=== PATIENT | female | born 1985 | race African-American/Black ===

== ENCOUNTER 2016-11-07 19:25 | Emergency (ER) | payer MEDICAID, OTHER ==
[~2016-11-07] VITALS: Ht 170.2 cm; Wt 129.0 kg
[~2016-11-07 19:25] MED LIST: AMLO5TAB2 PO; LABE100T2 PO; LOSA100T2 PO
[2016-11-07 19:27] VITALS: BP 176/92; PULSE 83; RESP 15; TEMP 97.6; O2SAT 97
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
[2016-11-07] MEDS ORDERED: DICL75TA PO (21:08)
[2016-11-07] MEDS ORDERED: CYCL1TAB29 PO (21:08)
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
[2016-11-07] MEDS ORDERED: ACETAMINOPHEN/HYDROcodone 325 MG/5 MG TAB PO ONE (21:15)
== END 2016-11-07 21:23 | disposition home or self-care (01) ==
LOC: NETRI 19:25
DX: S40.011A Contusion of right shoulder, initial encounter (principal); S20.211A Contusion of right front wall of thorax, initial encounter; I10 Essential (primary) hypertension; E11.9 Type 2 diabetes mellitus without complications; R20.2 Paresthesia of skin; V43.62XA Car passenger injured in collision with other type car in traffic accident, initial encounter; Y92.410 Unspecified street and highway as the place of occurrence of the external cause; Z72.0 Tobacco use
CPT/HCPCS: 71020; 73030; 99284

== ENCOUNTER 2016-11-23 18:18 | Emergency (ER) | payer MEDICAID ==
[~2016-11-23] VITALS: Ht 170.2 cm; Wt 125.0 kg
[~2016-11-23 18:18] MED LIST changes: +CYCL1TAB29 PO; +DICL75TA PO
[2016-11-23 18:21] VITALS: BP 209/124; PULSE 98; RESP 17; TEMP 99.1; O2SAT 98
[2016-11-23] MEDS ORDERED: KETOROLAC TROMETHAMINE 30 MG/ML (IVP) VIAL IV PUSH ONE (19:15)
--- NOTE | 2016-11-23 19:28 | PD ---
HPI Chief Complaint: Abdominal Pain Time Seen by Provider: 19:13 Travel History International Travel<30 days: No Contact w/Intl Traveler<30days: No Traveled to known affect area: No History of Present Illness HPI The patient is a 31 year old female who presents to the [facility] emergency department with a history of abdominal pain that she reports is intermittently been present since she had a and bilateral tubal ligation done by Dr. Garcia in 2014. The patient reports that the pain is along the site of the incision. The patient reports that the pain comes and goes and is sharp like she is being stuck. She reports that she did discuss this further with her primary care physician and had an x-ray done that showed no acute abnormality. She denies having any blood work done. She reports that she has not followed up with her protection officer as her insurance no longer covers seeing Dr. Landers. She reports that she has been moving her bowels regularly. She denies having any fevers or chills. The patient denies any recent fevers, cough, congestion, neck pain, chest pain, shortness of breath, vomiting, diarrhea, urinary symptoms, vaginal discharge or unusual vaginal bleeding, or neurologic symptoms. She denies having any concerns about sexually transmitted infections. LMP: Currently on her cycle that began 2 days ago PFS Past Medical History Narrative Medical The patient's past medical history is significant for hypertension, obesity, COPD, chronic proteinuria. Cancer: No Cardiovascular Problems: Yes Chemotherapy: No Diabetes: Yes Diminished Hearing: No Endocrine: No Genitourinary: No Heparin Induced Thrombocytopen: No Hypertension: Yes Immune Disorder: No Musculoskeletal: No Neurologic: No Psychiatric: No Reproductive: No Respiratory: No Immunizations Current: Yes Radiation Therapy: No Sickle Cell Disease: No Thyroid Disease: No ?: Not LMP: 11/23/16 Menopausal: No : 2 Para: 1 Miscarriage: 1 Tubal Ligation: Yes (02/28/15) Past Surgical History Narrative Surgical The patient's past surgical history is significant for , cholecystectomy Abdominal Surgery: Yes (gall bladder) AICD: No Arteriovenous Shunt: No Cardiac Surgery: No Section: Yes (02/28/15) Cholecystectomy: Yes Ear Surgery: No Endocrine Surgery: No Eye Surgery: No Genitourinary Surgery: No Gynecologic Surgery: Yes ( 02/28/15) Insulin Pump: No Joint Replacement: No Oral Surgery: No Pacemaker: No Thoracic Surgery: No Other Surgery: Yes Social History Alcohol Use: No Tobacco Use: Yes (5 cigs a day) Substance Use: No Allergies-Medications (Allergen,Severity, Reaction): Coded Allergies: No Known Allergies (Verified , 11/07/16) Reported Meds & Prescriptions Reported Meds & Active Scripts Active Lortab (Hydrocodone-Acetaminophen) 5-325 Mg Tab 1 Tab PO Q6H PRN Flexeril (Cyclobenzaprine HCl) 10 Mg Tab 10 Mg PO TID Diclofenac Sodium DR (Diclofenac Sodium) 75 Mg Tabdr 75 Mg PO BID Amlodipine (Amlodipine Besylate) 5 Mg Tab 5 Mg PO DAILY Losartan-Hydrochlorothiazide 100-25 Mg Tab 1 Tab PO DAILY Labetalol (Labetalol HCl) 100 Mg Tab 100 Mg PO BID 30 Days Reported Labetalol (Labetalol HCl) 100 Mg Tab 100 Mg PO BID Review of Systems Except as stated in HPI: all other systems reviewed are Neg General / Constitutional: No: Fever Eyes: No: Visual changes HENT: No: Headaches Cardiovascular: No: Chest Pain or Discomfort Respiratory: No: Shortness of Breath Gastrointestinal: Positive: Abdominal Pain, No: Nausea, Vomiting, Diarrhea, Changes in Bowel Habits, Indigestion, Loss of Appetite Genitourinary: No: Dysuria Musculoskeletal: No: Pain Skin: No Rash Neurologic: No: Weakness, Focal Abnormalities, Change in Mentation, Slurred Speech, Sensory Disturbance Psychiatric: No: Depression Endocrine: No: Polydipsia Hematologic/Lymphatic: No: Easy Bruising Physical Exam Narrative General: The patient is a well-developed well-nourished female in no acute distress. Head and Neck exam: Head is normocephalic atraumatic. Eyes: EOMI, pupils are equal round and reactive to light. Nose: Midline septum with pink mucous membranes Mouth: Dentition unremarkable. Moist mucus membranes. Posterior oropharynx is not erythematous. No tonsillar hypertrophy. Uvula midline. Airway patent. Neck: No palpable lymphadenopathy. No nuchal rigidity. No thyromegaly. Cardiovascular: Regular rate and rhythm without murmurs, gallops, or rubs. Lungs: Clear to auscultation bilaterally. No wheezes, rhonchi, or rales. Abdomen: Soft, with tenderness on palpation along the site that appears that healed well. There is some firmness to palpation along the linear scar. There is no crepitus. There is no wound dehiscence. There is no drainage, erythema, or warmth. No guarding, rebound, or rigidity. No tenderness on palpation of McBurney's point Extremities: No clubbing, cyanosis, or edema. 2+ pulses in all 4 extremities. Back: No spinous process tenderness to palpation. No costovertebral angle tenderness to palpation. Neurologic Exam: Grossly nonfocal. Skin Exam: No rash noted. Intact skin that is warm and dry. Data Data Last Documented VS Vital Signs Date Time Temp Pulse Resp B/P Pulse Ox O2 Delivery O2 Flow Rate FiO2 11/23/16 23:03 16 11/23/16 18:21 99.1 98 209/124 98 Orders Complete Blood Count With Diff (11/23/16 19:14) Basic Metabolic Panel (Bmp) (11/23/16 19:14) Urinalysis - C+S If Indicated (11/23/16 19:14) Iv Access Insert/Monitor (11/23/16 19:14) Ecg Monitoring (11/23/16 19:14) Oximetry (11/23/16 19:14) Ed Urine Pregnancytest Poc (11/23/16 19:14) Ketorolac Inj (Toradol Inj) (11/23/16 19:15) Acetaminophen (Tylenol) (11/23/16 21:00) Ct Abd/Pel W Iv Contrast(Rout) (11/23/16 20:52) Urine Culture (11/23/16 20:30) Iohexol 350 Inj (Omnipaque 350 Inj) (11/23/16 22:53) Labs Laboratory Tests Test 11/23/16 11/23/16 19:30 20:30 White Blood Count 7.5 TH/MM3 Red Blood Count 4.18 MIL/MM3 Hemoglobin 11.4 GM/DL Hematocrit 33.6 % Mean Corpuscular Volume 80.2 FL Mean Corpuscular Hemoglobin 27.3 PG Mean Corpuscular Hemoglobin 34.0 % Concent Red Cell Distribution Width 16.0 % Platelet Count 138 TH/MM3 Mean Platelet Volume 10.0 FL Neutrophils (%) (Auto) 68.4 % Lymphocytes (%) (Auto) 23.1 % Monocytes (%) (Auto) 4.9 % Eosinophils (%) (Auto) 2.5 % Basophils (%) (Auto) 1.1 % Neutrophils # (Auto) 5.1 TH/MM3 Lymphocytes # (Auto) 1.7 TH/MM3 Monocytes # (Auto) 0.4 TH/MM3 Eosinophils # (Auto) 0.2 TH/MM3 Basophils # (Auto) 0.1 TH/MM3 CBC Comment DIFF FINAL Differential Comment Sodium Level 138 MEQ/L Potassium Level 3.7 MEQ/L Chloride Level 105 MEQ/L Carbon Dioxide Level 27.4 MEQ/L Anion Gap 6 MEQ/L Blood Urea Nitrogen 10 MG/DL Creatinine 1.18 MG/DL Estimat Glomerular Filtration 64 ML/MIN Rate Random Glucose 84 MG/DL Calcium Level 9.0 MG/DL Urine Color LIGHT-RED Urine Turbidity CLEAR Urine pH 6.5 Urine Specific [place] 1.014 Urine Protein 30 mg/dL Urine Glucose (UA) NEG mg/dL Urine Ketones NEG mg/dL Urine Occult Blood LARGE Urine Nitrite NEG Urine Bilirubin NEG Urine Urobilinogen LESS THAN 2.0 MG/DL Urine Leukocyte Esterase TRACE Urine RBC /hpf Urine WBC 11 /hpf Urine Squamous Epithelial 1 /hpf Cells Urine Mucus FEW /lpf Microscopic Urinalysis Comment CULTURE INDICATED MDM Medical Decision Making Medical Screen Exam Complete: Yes Emergency Medical Condition: Yes Medical Record Reviewed: Yes Interpretation(s) Last Impressions Abdomen/Pelvis CT 11/23/162051 Signed Impressions: Service Date/Time: Wednesday, November 23, 2016 22:50 - CONCLUSION: Small soft tissue mass anterior to the right rectus insertion could be hematoma or conceivably a desmofibroma. Otherwise unremarkable exam Bob Rodriguez MD Differential Diagnosis Chronic scar pain related to an entrapped nerve, versus retained suture, versus ovarian cysts, versus endometriosis Narrative Course During the course of the patients emergency department visit, the patients history, examination, and differential diagnosis were reviewed with the patient. The patient had IV access obtained and blood work sent for analysis. An ultrasound of pelvis has been ordered. The patient was initially provided Toradol 15 mg IV 1 for pain. The patients laboratory studies were reviewed and remarkable for a white count of 7.5, hemoglobin 11.4, platelets 138 with a normal differential, CMP is remarkable for creatinine 1.18. I was notified by the radiology department that the patient had an outpatient ultrasound of the pelvis due to her chronic pelvic pain since her in 2014 done in August of this year. It was reportedly unremarkable at that time. The patient's ultrasound that was ordered at this time is been canceled. Urinalysis shows hematuria, however the patient is currently on her menstrual cycle, no other findings suggest an acute urinary tract infection. CT scan of the abdomen and pelvis reveals a 2 x 9 x 4.1 cm soft tissue mass anterior to the rectus insertion but could be a hematoma or a fibroma. Given the chronicity of this patient's symptoms are suspected as a fibroma. The patient will be given the name of the general surgeon on-call for follow-up for further discussion of treatment options. The patient is resting comfortably and feels better, is alert and in no distress. The patients results and examination findings were discussed with the patient. The repeat examination is unremarkable and benign. The history, exam, diagnostic testing, and current condition do not suggest any significant pathology to warrant further testing, continued ED treatment, admission, or surgical evaluation at this point. The vital signs have been stable. The patient does not have uncontrollable pain, intractable vomiting, or other significant symptoms. The patient's condition is stable and appropriate for discharge. The patient will pursue further outpatient evaluation with a primary care physician or other designated or consulting physician as indicated in the discharge instructions. The patient expressed understanding and was agreeable with this plan. Diagnosis Primary Impression: Chronic pelvic pain in female Additional Impression: Soft tissue mass Referrals: Blair Garcia MD 3 days Patient Instructions: General Instructions, Pelvic Pain in Women (ED), Soft Tissue Mass (ED) Additional Instructions: Take tylenol as needed as written on the package for discomfort/ pain 1-5/10 in severity. Take prescription pain medication for pain 5-10/10 in severity. Med/Other Pt SpecificInfo: Prescription(s) given Scripts Hydrocodone-Acetaminophen (Lortab)5-325 Mg Tab1 Tab PO Q6H PRN (PAIN GREATER THAN 5) #12 TAB Ref 0 Prov:Shabana Macias MD 11/23/16 Disposition: 01 DISCHARGE HOME Condition: Stable Shabana Macias MD Nov 23, 2016 19:28
[2016-11-23 19:45] LABS: AUTOMATED NEUTROPHIL # 5.1 TH/MM3 (1.8-7.7); BASOPHIL # 0.1 TH/MM3 (0-0.2); BASOPHIL % 1.1 % (0.0-2.0); EOSINOPHIL # 0.2 TH/MM3 (0-0.4); EOSINOPHIL % 2.5 % (0.0-4.0); HEMATOCRIT 33.6 % (35.0-46.0); HEMO FLAGS DIFF FINAL; LYMPH % 23.1 % (9.0-44.0); LYMPHOCYTE # 1.7 TH/MM3 (1.0-4.8); MEAN CELL VOLUME 80.2 FL (80.0-100.0); MEAN CORPUSCULAR HEMOGLOBIN 27.3 PG (27.0-34.0); MONO % 4.9 % (0.0-8.0); NEUT % 68.4 % (16.0-70.0); PLATELET COUNT 138 TH/MM3 (150-450); RED BLOOD COUNT 4.18 MIL/MM3 (4.00-5.30); WHITE BLOOD COUNT 7.5 TH/MM3 (4.0-11.0)
[2016-11-23 20:04] LABS: BICARBONATE 27.4 MEQ/L (21.0-32.0); POTASSIUM 3.7 MEQ/L (3.5-5.1)
[2016-11-23] MEDS ORDERED: HYDR-3533 PO (20:27)
[2016-11-23 20:58] LABS: BLOOD, URINE LARGE (NEG); COMMENT (UR) CULTURE INDICATED; CULTURE IF INDICATED CULTURE INDICATED; GLUCOSE,URINE NEG (NEG); KETONE, URINE NEG (NEG); MUCUS URINE FEW /lpf (OCC); NITRITE,URINE NEG (NEG); PH, URINE 6.5 (5.0-8.5); SQUAMOUS EPITHELIAL CELL URINE 1 /hpf (0-5)
[2016-11-23 20:59] LABS: URINE COLOR LIGHT-RED (YELLW/STRAW)
[2016-11-23] MEDS ORDERED: ACETAMINOPHEN 325 MG TAB PO ONE (21:00)
[2016-11-23] MEDS ORDERED: IOHEXOL 350 MG/ML 10 ML VIAL (for RAD DIAG) IV ONE (22:53)
[2016-11-23 23:03] VITALS: RESP 16
--- NOTE | 2016-11-23 23:26 | RADRPT ---
EXAM DATE/TIME: 11/23/2016 22:50 [facility] COMPARISON: No previous studies available for comparison. INDICATIONS : Abdominal pain swelling history of IV CONTRAST: 92 cc Omnipaque 350 (iohexol) IV ORAL CONTRAST: No oral contrast ingested. RADIATION DOSE: 32.55 CTDIvol (mGy) MEDICAL HISTORY : Hypertension. Diabetes mellitus type 2. SURGICAL HISTORY : Cholecystectomy. Tubal ligation. section. ENCOUNTER: Initial ACUITY: 1 month PAIN SCALE: 7/10 LOCATION: abdomen TECHNIQUE: Volumetric scanning of the abdomen and pelvis was performed. Using automated exposure control and ad justment of the mA and/or kV according to patient size, radiation dose was kept as low as reasonably achievable to obtain optimal diagnostic quality images. FINDINGS: LOWER LUNGS: The visualized lower lungs are clear. LIVER: Homogeneous density without lesion. There is no dilation of the biliary tree. Cholecystectomy clips SPLEEN: Normal size without lesion. PANCREAS: Within normal limits. KIDNEYS: Normal in size and shape. There is no mass, stone or hydronephrosis. ADRENAL GLANDS: Within normal limits. VASCULAR: There is no aortic aneurysm. BOWEL/MESENTERY: The stomach, small bowel, and colon demonstrate no acute abnormality. There is no free intraperitone al air or fluid. ABDOMINAL WALL: 2.9 x 4.1 cm soft tissue mass anterior to the rectus insertion could be hematoma or a fibroma. RETROPERITONEUM: There is no lymphadenopathy. BLADDER: No wall thickening or mass. REPRODUCTIVE: Within normal limits. INGUINAL: There is no lymphadenopathy or hernia. MUSCULOSKELETAL: Within normal limits for patient age. CONCLUSION: Small soft tissue mass anterior to the right rectus insertion could be hematoma or conceivably a desm ofibroma. Otherwise unremarkable exam Bob Rodriguez MD on November 23, 2016 at 23:22 Board Certified Radiologist. This report was verified electronically.
[2016-11-24 00:34] VITALS: BP 147/75
== END 2016-11-24 00:36 | disposition home or self-care (01) ==
LOC: NEPE 18:18
DX: R10.2 Pelvic and perineal pain (principal); G89.29 Other chronic pain; Z72.0 Tobacco use; I10 Essential (primary) hypertension; E11.9 Type 2 diabetes mellitus without complications; J44.9 Chronic obstructive pulmonary disease, unspecified
CPT/HCPCS: 74177; 80048; 81001; 84703; 85025; 87086; 96374; 99284; J1885; Q9967